=== PATIENT | male | born 1950 | race Caucasian/White ===

== ENCOUNTER → 2025-03-02 | Outpatient (CLI) | payer MEDICARE, BC, SELFPAY ==
[2025-03-02 09:34] LABS: Basophils % (Auto) 0 % (0-2.5); Eosinophils # (Auto) 0.2 Thou/mm3 (0.0-0.5); Eosinophils % (Auto) 4 % (0-10); Hematocrit 44.4 % (41.0-53.0); Hemoglobin 15.4 g/dL (13.5-16.0); Immature Granulocytes % (Auto) 0 % (0-0); Lymphocytes # (Auto) 1.1 Thou/mm3 (1.0-4.8); Lymphocytes % (Auto) 22 % (10-50); Mean Corpuscular HGB Conc 34.7 g/dl (31.0-37.0); Mean Corpuscular Hemoglobin 31.2 pg (25.0-35.0); Mean Corpuscular Volume 90 fL (80-100); Monocytes # (Auto) 0.3 Thou/mm3 (0.0-0.8); Monocytes % (Auto) 6 % (0-12); Neutrophils # (Auto) 3.2 Thou/mm3 (1.8-7.7); Neutrophils % (Auto) 67 % (37-80); Nucleated Red Blood Cell % 0 /100 WBC (0); Platelet Count 179 Thou/mm3 (140-440); RDW Standard Deviation 40.1 fL (35.1-43.9); Red Blood Count 4.94 Miln/mm3 (4.50-5.90); White Blood Count 4.8 Thou/mm3 (3.8-10.6)
[2025-03-02 09:52] LABS: Alanine Aminotransferase 22 U/L (10-49); Albumin, Serum 4.3 gm/dL (3.4-4.8); Albumin/Globulin Ratio 1.7 (1.2-2.2); Alkaline Phosphatase 62 U/L (46-116); Anion Gap 9 (7-16); Aspartate Amino Transferase 30 U/L (0-34); BUN/Creatinine Ratio 17 Ratio (12-20); Bilirubin,Total 0.6 mg/dL (0.3-1.2); Blood Urea Nitrogen 20 mg/dL (9-23); Calcium 9.1 mg/dL (8.3-10.6); Calcium (Corrected) 9.1 mg/dL (8.5-10.1); Carbon Dioxide 27.3 mMol/L (20.0-31.0); Cardiac Risk Estimate 2.6 RATIO (4.0-6.7); Chloride 105 mMol/L (98-107); Cholesterol 148 mg/dL (132-200); Creatinine (Component) 1.2 mg/dL (0.6-1.3); Globulin 2.6 gm/dL (2.3-3.5); Glucose 111 mg/dL (74-106); HDL Cholesterol 58 mg/dL (40-60); LDL Cholesterol,Calculated 71 mg/dL (0-130); Osmolality,Calculated 284 (275-295); Potassium 4.3 mMol/L (3.4-5.1); Sodium 141 mMol/L (136-145); Total Protein 6.9 gm/dL (5.7-8.2); Triglycerides 94 mg/dL (30-150); eGFR > 60 See Note
== END | disposition home or self-care (01) ==
PROVIDERS: PCP Family Medicine; Referring Provider Family Medicine; Visit Provider Family Medicine
DX: I25.701 Atherosclerosis of coronary artery bypass graft(s), unspecified, with angina pectoris with documented spasm (principal); N40.1 Benign prostatic hyperplasia with lower urinary tract symptoms
CPT/HCPCS: 36415; 80053; 80061; 84153; 85025; G0103

== ENCOUNTER → 2025-03-10 | Outpatient (BNVA) | payer MEDICARE, BC, SELFPAY | END | disposition home or self-care (01) | PROVIDERS: PCP Family Medicine; Referring Provider Family Medicine; Visit Provider Urology | DX: N40.1 Benign prostatic hyperplasia with lower urinary tract symptoms (principal); N13.8 Other obstructive and reflux uropathy; R97.20 Elevated prostate specific antigen [PSA]; N40.2 Nodular prostate without lower urinary tract symptoms; I10 Essential (primary) hypertension; I25.10 Atherosclerotic heart disease of native coronary artery without angina pectoris; Z95.5 Presence of coronary angioplasty implant and graft | CPT/HCPCS: 81003; 99212; G0463 ==

== ENCOUNTER → 2025-03-11 | Outpatient (CLI) | payer MEDICARE, BC, SELFPAY ==
[2025-03-14 07:40] LABS: Fecal Globin Result NOT DETECTED (NOT DETECTED)
== END | disposition home or self-care (01) ==
LOC: SLDO 09:54
PROVIDERS: Referring Provider Family Medicine; Visit Provider Family Medicine
DX: Z12.11 Encounter for screening for malignant neoplasm of colon (principal)
CPT/HCPCS: 82274; G0328

== ENCOUNTER → 2025-03-15 | Outpatient (BNVA) | payer MEDICARE, BC, SELFPAY | END | disposition home or self-care (01) | PROVIDERS: PCP Family Medicine; Referring Provider Family Medicine; Visit Provider Urology | DX: N40.1 Benign prostatic hyperplasia with lower urinary tract symptoms (principal); N13.8 Other obstructive and reflux uropathy; R97.20 Elevated prostate specific antigen [PSA]; N40.2 Nodular prostate without lower urinary tract symptoms; I10 Essential (primary) hypertension; I25.10 Atherosclerotic heart disease of native coronary artery without angina pectoris; Z95.5 Presence of coronary angioplasty implant and graft | CPT/HCPCS: 81003; 99212; G0463 ==

== ENCOUNTER → 2025-04-19 | Outpatient (BNVA) | payer MEDICARE, BC, SELFPAY | END | disposition home or self-care (01) | PROVIDERS: PCP Family Medicine; Referring Provider Family Medicine; Visit Provider Urology | DX: C61 Malignant neoplasm of prostate (principal); N42.32 Atypical small acinar proliferation of prostate; N40.1 Benign prostatic hyperplasia with lower urinary tract symptoms; N13.8 Other obstructive and reflux uropathy | CPT/HCPCS: 55700; 76872; 76942; 96372; A4649; J1580; J3490; A9270 ==

== ENCOUNTER → 2025-04-22 | Outpatient (BNVA) | payer MEDICARE, BC, SELFPAY | END | disposition home or self-care (01) | PROVIDERS: PCP Family Medicine; Referring Provider Family Medicine; Visit Provider Physician Assistant | DX: C61 Malignant neoplasm of prostate (principal); I10 Essential (primary) hypertension; N52.9 Male erectile dysfunction, unspecified; I25.10 Atherosclerotic heart disease of native coronary artery without angina pectoris | CPT/HCPCS: 99212; G0463 ==

== ENCOUNTER → 2025-05-03 | Outpatient (BNVA) | payer MEDICARE, BC, SELFPAY | END | disposition home or self-care (01) | PROVIDERS: PCP Family Medicine; Referring Provider Family Medicine; Visit Provider Urology | DX: N32.89 Other specified disorders of bladder (principal); N40.1 Benign prostatic hyperplasia with lower urinary tract symptoms; N13.8 Other obstructive and reflux uropathy; C61 Malignant neoplasm of prostate | CPT/HCPCS: 52000; 76872; 81003; 96372; 99213; A4217; A4649; C1894; J3260; A9270; G0463 ==

== ENCOUNTER → 2025-06-01 | Outpatient (CLI) | payer MEDICARE, BC, SELFPAY ==
[2025-06-01 13:32] LABS: Basophils # (Auto) 0.0 Thou/mm3 (0.0-0.2); Basophils % (Auto) 0 % (0-2.5); Eosinophils # (Auto) 0.1 Thou/mm3 (0.0-0.5); Eosinophils % (Auto) 2 % (0-10); Hematocrit 44.4 % (41.0-53.0); Hemoglobin 14.9 g/dL (13.5-16.0); Immature Granulocytes Auto 0.01 Thou/mm3 (0.00-0.00); Lymphocytes # (Auto) 1.4 Thou/mm3 (1.0-4.8); Lymphocytes % (Auto) 21 % (10-50); Mean Corpuscular HGB Conc 33.6 g/dl (31.0-37.0); Mean Corpuscular Hemoglobin 31.2 pg (25.0-35.0); Mean Corpuscular Volume 93 fL (80-100); Monocytes # (Auto) 0.4 Thou/mm3 (0.0-0.8); Monocytes % (Auto) 6 % (0-12); Neutrophils # (Auto) 4.7 Thou/mm3 (1.8-7.7); Neutrophils % (Auto) 70 % (37-80); Nucleated Red Blood Cell # 0.00 Thou/mm3 (0.00-0.00); Nucleated Red Blood Cell % 0 /100 WBC (0); Platelet Count 180 Thou/mm3 (140-440); RDW Standard Deviation 42.1 fL (35.1-43.9); Red Blood Count 4.77 Miln/mm3 (4.50-5.90); White Blood Count 6.7 Thou/mm3 (3.8-10.6)
[2025-06-01 13:41] LABS: INR 1.0 (0.9-1.3); Partial Thromboplastin Time 25.3 Seconds (22.0-36.0); Prothrombin Time 11.3 Seconds (9.0-12.2)
[2025-06-01 13:56] LABS: Alanine Aminotransferase 29 U/L (10-49); Albumin, Serum 4.2 gm/dL (3.4-4.8); Albumin/Globulin Ratio 2.0 (1.2-2.2); Alkaline Phosphatase 58 U/L (46-116); Anion Gap 9 (7-16); Aspartate Amino Transferase 27 U/L (0-34); BUN/Creatinine Ratio 16 Ratio (12-20); Bilirubin,Total 0.5 mg/dL (0.3-1.2); Blood Urea Nitrogen 19 mg/dL (9-23); Calcium 9.8 mg/dL (8.3-10.6); Calcium (Corrected) 9.8 mg/dL (8.5-10.1); Carbon Dioxide 28.5 mMol/L (20.0-31.0); Chloride 104 mMol/L (98-107); Creatinine (Component) 1.2 mg/dL (0.6-1.3); Globulin 2.1 gm/dL (2.3-3.5); Glucose 128 mg/dL (74-106); Osmolality,Calculated 285 (275-295); Potassium 4.6 mMol/L (3.4-5.1); Sodium 141 mMol/L (136-145); Total Protein 6.3 gm/dL (5.7-8.2); eGFR > 60 See Note
== END | disposition home or self-care (01) ==
LOC: COPL 12:24
PROVIDERS: PCP Family Medicine; Referring Provider Family Medicine; Visit Provider Family Medicine
DX: Z01.818 Encounter for other preprocedural examination (principal); C61 Malignant neoplasm of prostate
CPT/HCPCS: 36415; 80053; 85025; 85610; 85730

== ENCOUNTER → 2025-06-23 | Outpatient (CLI) | payer MEDICARE, BC, SELFPAY ==
--- NOTE | 2025-06-23 11:08 | XR_ITS ---
Examination: Cystogram AP oblique lateral images, pelvis, 13 spot films Fluoroscopy Date and time: June 23, 2025, 12:33 PM INDICATIONS: Diagnosis malignant neoplasm of the prostate, status post prostatectomy 10 days ago TECHNIQUE AND FINDINGS: Software Applications Specialist film demonstrates bilateral ureteral stents in satisfactory position Bladder filled with 200 cc Cystografin Trabeculation of the bladder No abnormal contrast extravasation from the bladder Fluoroscopy 30 seconds 13 spot fluoroscopic films of the pelvis IMPRESSION: Urinary bladder intact
== END | disposition home or self-care (01) ==
LOC: SDIM 10:54
PROVIDERS: PCP Family Medicine; Referring Provider Urology; Visit Provider Urology
DX: C61 Malignant neoplasm of prostate (principal)
CPT/HCPCS: 51600; 74430; Q9958

== ENCOUNTER → 2025-06-23 | Outpatient (BNVA) | payer MEDICARE, BC, SELFPAY | END | disposition home or self-care (01) | PROVIDERS: PCP Family Medicine; Referring Provider Family Medicine; Visit Provider Urology | DX: C61 Malignant neoplasm of prostate (principal); Z90.79 Acquired absence of other genital organ(s); Z46.6 Encounter for fitting and adjustment of urinary device | CPT/HCPCS: 99212; G0463 ==

== ENCOUNTER 2025-06-28 10:31 | Day surgery (SDC) | payer MEDICARE, BC, SELFPAY ==
--- NOTE | 2025-06-27 09:37 | EKG_ITS ---
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
[2025-06-27 11:25] LABS: Basophils # (Auto) 0.0 Thou/mm3 (0.0-0.2); Basophils % (Auto) 0 % (0-2.5); Eosinophils # (Auto) 0.0 Thou/mm3 (0.0-0.5); Eosinophils % (Auto) 0 % (0-10); Hematocrit 38.9 % (41.0-53.0); Hemoglobin 13.1 g/dL (13.5-16.0); Immature Granulocytes Auto 0.06 Thou/mm3 (0.00-0.00); Lymphocytes # (Auto) 0.6 Thou/mm3 (1.0-4.8); Lymphocytes % (Auto) 5 % (10-50); Mean Corpuscular HGB Conc 33.7 g/dl (31.0-37.0); Mean Corpuscular Hemoglobin 30.9 pg (25.0-35.0); Mean Corpuscular Volume 92 fL (80-100); Monocytes # (Auto) 0.6 Thou/mm3 (0.0-0.8); Monocytes % (Auto) 5 % (0-12); Neutrophils # (Auto) 10.5 Thou/mm3 (1.8-7.7); Neutrophils % (Auto) 89 % (37-80); Nucleated Red Blood Cell # 0.00 Thou/mm3 (0.00-0.00); Nucleated Red Blood Cell % 0 /100 WBC (0); Platelet Count 315 Thou/mm3 (140-440); RDW Standard Deviation 40.7 fL (35.1-43.9); Red Blood Count 4.24 Miln/mm3 (4.50-5.90); White Blood Count 11.8 Thou/mm3 (3.8-10.6)
[2025-06-27 11:30] LABS: Anion Gap 12 (7-16); BUN/Creatinine Ratio 13 Ratio (12-20); Blood Urea Nitrogen 17 mg/dL (9-23); Calcium 9.7 mg/dL (8.3-10.6); Carbon Dioxide 24.9 mMol/L (20.0-31.0); Chloride 99 mMol/L (98-107); Creatinine (Component) 1.3 mg/dL (0.6-1.3); Glucose 113 mg/dL (74-106); Osmolality,Calculated 274 (275-295); Potassium 3.9 mMol/L (3.4-5.1); Sodium 136 mMol/L (136-145); eGFR 57 See Note
[2025-06-27 11:49] LABS: INR 1.1 (0.9-1.3); Partial Thromboplastin Time 30.8 Seconds (22.0-36.0); Prothrombin Time 11.8 Seconds (9.0-12.2)
[2025-06-28] VITALS (12 sets, daily range): BP systolic 100–132; BP diastolic 51–68; PULSE 64–71; RESP 12–22; TEMP 37–37.1; O2SAT 94–99
--- NOTE | 2025-06-28 21:05 | ESOP_ITS ---
RE: ELENO JARVIS : 1950 DATE OF OPERATION: 06/28/2025 PROCEDURES PERFORMED: 1. Diagnostic left heart cardiac catheterization, selective coronary angiogram, bypass graft angiogram, CPT 02670. 2. PCI/PTCA and stent placement in the vein bypass graft to the right coronary artery with placement of 3.5 x 12 mm [place] Medtronic drug-eluting stent. Pre-procedure stenosis 90%, post-procedure stenosis 0%. Pre-procedure RON flow 3, post-procedure RON flow 3. CPT code 07720. 3. PCI/PTCA (percutaneous transluminal coronary angioplasty) of the additional vessel, proximal left circumflex artery, using high-pressure balloon angioplasty. CPT code 54096, Modifier 59. 4. Ultrasound-guided access to right radial artery. 5. Conscious sedation of 1 hour duration. DIAGNOSES: Coronary artery disease status post bypass graft surgery, multivessel stent placement, recurrent angina pectoris, class 3 angina, abnormal nuclear stress test. HISTORY AND INDICATIONS: The patient is a 74-year-old male with a past medical history of coronary artery disease status post coronary artery bypass graft surgery, vein graft to RCA, circumflex to VARGAS to LAD around 2018. The patient had multiple angiograms. Most recent coronary intervention was in 02/2025. At that time, coronary angiogram showed VARGAS to LAD patent, LAD occluded. [place] circumflex artery showed in-stent restenosis, multiple stents placed previously. The patient, because of heavy calcification, underwent intravascular lithotripsy angioplasty by Dr. Benitez at that time, but no stent was placed. The patient had multiple stents in place already, under-expanded in the proximal circumflex artery. I reviewed angiograms at [facility]. The patient also had an RCA bypass which is patent with mild disease with a patent vein graft to the RCA with preserved ejection fraction. Because of recurrent angina pectoris, shortness of breath and inferolateral ischemia, a coronary angiogram, cardiac catheterization was recommended and bypass graft assessment as well as possible intervention of circumflex artery. Class 1 indication for procedure. DESCRIPTION OF PROCEDURE: The patient was brought to the cardiac catheterization laboratory and given 2 mg of Versed and 50 mcg of fentanyl for sedation. The right radial approach was taken. Right radial artery was cannulated with micropuncture technique. A 6-Tristanian [place] sheath was introduced. The patient had next had selective right and left coronary angiogram, left heart catheterization and LV angiogram were performed by a TIG-4 diagnostic catheter. Subsequently, a vein bypass graft angiogram to the RCA was performed using a FR4 diagnostic catheter. The patient tolerated the diagnostic procedure very well. VARGAS to LAD angiogram was not performed since it was already patent in February. Vein graft to circumflex artery was occluded closely. The diagnostic procedure showed following findings. [place] right coronary artery showed multiple 90% stenoses in the proximal and distal segments and vein graft to the right coronary artery showed evidence of a 90% discrete lesion in the mid portion of the body of the vein graft and left main coronary artery is normal. Left anterior descending artery is totally occluded proximal.. Previous angiogram VARGAS to LAD was patent. The circumflex artery showed evidence of a stent in the proximal segment at least multiple stent possibly at the same place with instent restenosis. Distal flow is compromised with RON 1 to RON 2 flow, sluggish flow in the distal circumflex artery with a lot of haziness as well due to calcification. Left ventricular pressure required to be normal at 105/10, aortic pressure of 105/70. No gradient across the aortic valve. Left ventricular angiogram showed a normal ejection fraction of 65%. Following diagnostic procedure, intervention was undertaken. Multivessel PCI was recommended. Vein graft to right coronary artery was showing 90% stenosis. Proceeded with PCI and vein graft of the right coronary artery initially. Right coronary artery was cannulated using AL1 6-Tristanian guiding catheter. Anticoagulation was given using additional 3000 units of heparin. ACT was therapeutic. Proceeded with a PCI. The right coronary lesion was directly stented using a 3.5 x 12 mm [place] Medtronic stent. drug eluting stent was deployed successfully. Two inflations were performed with excellent result. Subsequently, proceeded with a PCI stent placement of the circumflex artery, which appears to have multiple stents with in-stent restenosis and heavy calcification. After multiple PCIs, I did not want to proceed with additional stents, but to dilate the lesion aggressively. Proceeded with additional vessel angioplasty of the circumflex artery. A 6- [place] JL 3.5 guiding catheter was initially used, but did not give adequate support. I proceeded with a 6-Tristanian EBU 3.5 guiding catheter, placed in the left main coronary artery. A 0.014 run through guidewire was used to cross the lesion successfully. Initially, a 3.0 x 15 mm compliant balloon was used to dilate the lesion. Subsequently, a 3.5 mm x 12 mm balloon was used to dilate the lesion. Attempts were made to perform cutting balloon angioplasty with 3.75 x 10 mm wolverine balloon, could not cross the lesion due to heavy calcification and severe stenosis. Hence I proceeded with an NC balloon. A 4.0 x 12 mm noncompliant balloon was then used to dilate the lesion aggressively. I used up to 25 atmospheric pressures at one point. I was able to dilate it not to full satisfaction, but at least 80% dilated as higher pressure safely as possible. Subsequently, attempts were made again to pass the wolverine balloon, which could not cross because of heavy calcification. The flow was RON 3 flow and there was only 20% residual stenosis. At this point, I decided to accept the result as satisfactory angioplasty results for now. The patient had a restenosis. We might consider rotational atherectomy at [facility] in future. Final angiogram showed evidence of 80% opening and 20% residual stenosis with in-stent restenosis in the circumflex artery. The catheter was removed. Hemostasis was secured. A TR band was applied. FINAL SUMMARY: Findings are consistent with multivessel coronary artery disease. Evidence of vein graft occlusion of the circumflex artery. [place] circumflex artery showed a severe in-stent restenosis, 95% stenosis, underwent successful balloon angioplasty, aggressive angioplasty high-pressure balloon with 25 atmospheric pressures with acceptable final results. Pre-procedure stenosis of the circumflex is 95%, post-procedure stenosis is 20%. RON flow pre-procedure is 1, post-procedure 3. Successful stent placement of the vein graft to the right coronary artery stent placement using a 3.5 mm x 12 mm [place] Medtronic stent. Pre-procedure stenosis 90%, post-procedure 0%. RON flow pre-procedure is 3, post-procedure is 3. COMPLICATIONS: None. FINAL CONCLUSION: The patient had excellent results, but if he has restenosis in circumflex artery, he should proceed with a rotational atherectomy of the circumflex artery. DT: 18:28:20 TT: 20:42:00 Ref: [id number] - TID: [id number] [facility]
== END 2025-06-28 16:26 | disposition home or self-care (01) ==
PROVIDERS: PCP Family Medicine; Referring Provider Internal Medicine Cardiovascular Disease; Visit Provider Internal Medicine Cardiovascular Disease
PROC: (CPT 93459; principal; 2025-06-28 11:30)
DX: I25.118 Atherosclerotic heart disease of native coronary artery with other forms of angina pectoris (principal); T82.855A Stenosis of coronary artery stent, initial encounter; Y83.1 Surgical operation with implant of artificial internal device as the cause of abnormal reaction of the patient, or of later complication, without mention of misadventure at the time of the procedure; Z95.1 Presence of aortocoronary bypass graft; Z01.810 Encounter for preprocedural cardiovascular examination; Z79.82 Long term (current) use of aspirin; Z79.02 Long term (current) use of antithrombotics/antiplatelets; Z79.899 Other long term (current) drug therapy; I10 Essential (primary) hypertension
CPT/HCPCS: 93459; C9604; 36415; 80048; 85025; 85610; 85730; 93005; 99152; 99153; A4649; C1725; C1769; C1874; C1887; C1894; J0168; J0461; J1643; J2250; J2312; J2371; J3010; J3490; Q9967; A9270; J2305

== ENCOUNTER → 2025-07-08 | Outpatient (CLI) | payer MEDICARE, BC, SELFPAY ==
[2025-07-08 09:14] LABS: Prostate Specific Antigen 131.49 ng/mL (0-4.00)
== END | disposition home or self-care (01) ==
PROVIDERS: PCP Family Medicine; Referring Provider Urology; Visit Provider Urology
DX: C61 Malignant neoplasm of prostate (principal)
CPT/HCPCS: 36415; 84153

== ENCOUNTER 2025-07-12 08:44 | Outpatient (RCR) | payer MEDICARE, BC, SELFPAY ==
--- NOTE | 2025-07-12 11:29 | CTCCONSULT_ITS ---
[facility] [address], [place] [address] Consultation Note Date: 07/12/2025 MR#: [id number] Name: ELENO JARVIS : 1950 Dx: C61 Malignant neoplasm of prostate Referring physician. Mariposa Yen MD Reason for consultation. Patient with group 5 CA of prostate [id number] referred for postop radiation therapy. History of Present Illness: Patient is a 74-year-old gentleman who underwent radical prostatectomy at [facility] for prostate CA on 06/15/2025. Patient's preop PSA 03/02/2025 was high at 126 with PSMA PET preop reportedly showed possible left common iliac node and axial skeleton involvement. Surgery revealed prostatic adenocarcinoma group 5 Chery score 9(4+5) with extensive extraprostatic extension surgical margins positive with 1 of 9 lymph nodes removed involved with prostate adenocarcinoma. Postop PSA 07/08 remains high at 131.4. On 06/28/2025 patient underwent a successful balloon angioplasty for coronary artery disease. Patient referred for the cancer treatment center. Past Medical History: Atherosclerotic heart disease status post multivessel bypass graft surgery 2015. Recent successful balloon angioplasty performed. High blood pressure Meds. Atorvastatin Plavix losartan baby aspirin pantoprazole Allergies none to meds Family history. 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 Review of Systems: Defer the hearing easy bruising leak urine muscle pain nocturia trouble swallowing unexplained weight loss Physical Exam: General: Well-appearing gentleman in no acute distress HEENT: Atraumatic normocephalic extraocular is intact no oral lesions no cervical or supraclavicular adenopathy CV: Chest clear to auscultation heart regular rate and rhythm ABD: Soft no organomegaly or tenderness EXT: No signs of clubbing or edema Assessment:#1. Patient with CA the prostate preop PSA 126 with PSMA PET reportedly showing both pelvic node involvement as well as spine mets. #2. Underwent radical prostatectomy [facility] [id number] 06/15/2025. Postop PSA remains elevated. #3. Will initiate Lupron injections preceded by Casodex for 2 weeks. #4. Would like to have patient on hormone manipulation for at least 3 months and repeat PSMA PET scan. For localized cancer or oligo mets radiation therapy will be offered patient. Patient will continue on with hormonal manipulation as long as necessary. #5. Thank you for allowing me to evaluate and manage this patient Cc: Mariposa Bruce MD Electronically signed by: Ty Stinson MD, DABR 07/12/2025 11:27 AM
== END 2025-07-12 23:59 | disposition home or self-care (01) ==
LOC: SCTC 08:44
PROVIDERS: PCP Family Medicine; Referring Provider Urology; Visit Provider Radiology Therapeutic Radiology
DX: C61 Malignant neoplasm of prostate (principal); C79.51 Secondary malignant neoplasm of bone; Z92.3 Personal history of irradiation; I25.10 Atherosclerotic heart disease of native coronary artery without angina pectoris; Z80.1 Family history of malignant neoplasm of trachea, bronchus and lung; Z90.79 Acquired absence of other genital organ(s)
CPT/HCPCS: 99213; G0463

== ENCOUNTER → 2025-08-05 | Outpatient (CLI) | payer MEDICARE, BC, SELFPAY | END | disposition home or self-care (01) | LOC: SLDO 14:24 | PROVIDERS: Referring Provider Urology; Visit Provider Urology | DX: N39.0 Urinary tract infection, site not specified (principal) | CPT/HCPCS: 87077; 87086; 87186 ==

== ENCOUNTER → 2025-08-05 | Outpatient (BNVA) | payer MEDICARE, BC, SELFPAY | END | disposition home or self-care (01) | PROVIDERS: PCP Family Medicine; Referring Provider Family Medicine; Visit Provider Urology | DX: C61 Malignant neoplasm of prostate (principal); Z96.0 Presence of urogenital implants; I10 Essential (primary) hypertension | CPT/HCPCS: 52310; 81003; 96372; A4217; A4649; C1894; J0696; J1580; J3490; A9270 ==

== ENCOUNTER → 2025-09-19 | Outpatient (CLI) | payer MEDICARE, BC, SELFPAY ==
[2025-09-19 09:32] LABS: Prostate Specific Antigen 59.24 ng/mL (0-4.00)
== END | disposition home or self-care (01) ==
LOC: COPL 07:57
PROVIDERS: PCP Family Medicine; Referring Provider Radiology Therapeutic Radiology; Visit Provider Radiology Therapeutic Radiology
DX: R97.20 Elevated prostate specific antigen [PSA] (principal); C67.9 Malignant neoplasm of bladder, unspecified
CPT/HCPCS: 36415; 84153

== ENCOUNTER 2025-10-04 14:40 | Outpatient (RCR) | payer MEDICARE, BC, SELFPAY ==
--- NOTE | 2025-09-27 12:55 | CTCFLWUP_ITS ---
[facility] [address] [place], [place] [address] FOLLOW-UP NOTE Date: 09/27/2025 MR#: [id number] Name: ELENO JARVIS : 1950 Dx: C61 Malignant neoplasm of prostate Identification. Patient underwent radical prostatectomy at [facility] 06/15/2025. Preop PSA 03/02/2025 was high at 126. Group 5 [id number] PSMA PET ordered prior to surgery. reportedly revealed left common iliac lymph node and axial skeleton lesions. Unable to get copy we will ask them to be sent again. Pt has begun taking Casodex but Lupron injection has been delayed. This has been ordered for next week. Most recent PSA 09/19/2025 was 59 Already experiencing some hot flashes. Shall schedule patient for Lupron injections and referral to Dr. Brantley medical oncologist. Electronically signed by: Ty Stinson M.D. 09/27/2025 12:53 PM
== END 2025-10-12 23:59 | disposition home or self-care (01) ==
LOC: SCTC 14:40
PROVIDERS: PCP Family Medicine; Referring Provider Family Medicine; Visit Provider Radiology Therapeutic Radiology
DX: Z51.11 Encounter for antineoplastic chemotherapy (principal); C61 Malignant neoplasm of prostate; M89.9 Disorder of bone, unspecified
CPT/HCPCS: 96402; 99213; J9217; G0463